=== PATIENT | male | born 1975 | race Caucasian/White ===

== ENCOUNTER 2017-03-08 16:58 | Emergency (ER) | payer SELFPAY ==
[~2017-03-08] VITALS: Ht 162.6 cm; Wt 73.7 kg
[2017-03-08 17:54] LABS: HEMATOCRIT 45.2 % (38.0-50.0); MCH 30.3 PG (29.0-34.0); MCHC 34.3 G/DL (30.0-36.0); MCV 88.5 FL (86-99); MEAN PLAT.VOLUME 9.3 uM^3 (9.0-12.4); PLATELET COUNT 281 K/uL (156-360); RBC DIS.WIDTH-CV 12.6 % (11.8-14.6); RBC DIS.WIDTH-SD 41.1 % (39-53); RED BLOOD COUNT 5.11 M/uL (4.00-5.50)
[2017-03-08 18:06] LABS: CHLORIDE 107 mEq/L (99-109); POTASSIUM 3.7 mEq/L (3.7-5.4); SODIUM 141 mEq/L (136-147)
[2017-03-08 18:08] LABS: GLUCOSE 99 mg/dL (70-99)
[2017-03-08 18:10] LABS: ANION GAP 15 MEQ/L (2-14)
[2017-03-08 18:12] LABS: GFR ESTIMATE (CALCULATED) > 59 mL/min/ (58.99-99999)
[2017-03-08 18:13] LABS: UREA NITROGEN (BUN) 18 mg/dL (9-23)
[2017-03-08 18:16] LABS: TROP-I INTERPRETATION NEGATIVE; TROPONIN-I < 0.01 ng/mL (0.0-0.30)
[2017-03-08 21:07] LABS: TROP-I INTERPRETATION NEGATIVE; TROPONIN-I < 0.01 ng/mL (0.0-0.30)
[2017-03-08 22:09] VITALS: BP 111/85
== END 2017-03-08 22:08 | disposition home or self-care (01) ==
LOC: EME 16:58
PROVIDERS: Physician Assistant
DX: R07.89 Other chest pain (principal); I10 Essential (primary) hypertension; I25.2 Old myocardial infarction; F17.200 Nicotine dependence, unspecified, uncomplicated; Z82.49 Family history of ischemic heart disease and other diseases of the circulatory system
CPT/HCPCS: 71020; 80048; 84484; 85027; 93005; 99281; 99284